=== PATIENT | female | born 1995 | race African-American/Black ===

== ENCOUNTER 2017-04-13 18:39 | Emergency (ER) | payer OTHER ==
[~2017-04-13] VITALS: Ht 149.9 cm; Wt 62.2 kg
[2017-04-13 18:40] VITALS: BP 116/75; PULSE 84; RESP 20; TEMP 98.5; O2SAT 100
[2017-04-13] MEDS ORDERED: DESO1TAB5 PO (19:15)
[2017-04-13] MEDS ORDERED: NAPROXEN 500 MG TAB PO ONE (19:30)
[2017-04-13] MEDS ORDERED: CYCLOBENZAPRINE HCL 10 MG TAB PO ONE (19:30)
[2017-04-13] MEDS ORDERED: CYCL1TAB29 PO (19:31)
[2017-04-13] MEDS ORDERED: DICL75TA PO (19:31)
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
== END 2017-04-13 19:53 | disposition home or self-care (01) ==
LOC: NEPD 18:39
DX: M54.2 Cervicalgia (principal); R51 Headache; V49.50XA Passenger injured in collision with unspecified motor vehicles in traffic accident, initial encounter
CPT/HCPCS: 99284

== ENCOUNTER 2017-11-18 01:53 | Emergency (ER) | payer OTHER ==
[~2017-11-18] VITALS: Ht 149.9 cm; Wt 60.0 kg
[~2017-11-18 01:53] MED LIST: CYCL10TA PO; DESO1TAB5 PO; DICL75TA PO
[2017-11-18 02:19] VITALS: BP 144/60; PULSE 92; RESP 16; TEMP 98.3; O2SAT 100
[2017-11-18] MEDS ORDERED: IBUP1TAB7 PO (03:57)
[2017-11-18] MEDS ORDERED: AMOX875T PO (03:57)
[2017-11-18] MEDS ORDERED: MAGICADU2 SWISH-SPIT (03:57)
--- NOTE | 2017-11-18 04:00 | PD ---
HPI Chief Complaint: Oral / Dental Pain or Problem Time Seen by Provider: 03:51 Travel History International Travel<30 days: No Contact w/Intl Traveler<30days: No Traveled to known affect area: No History of Present Illness HPI 22-year-old female presents for evaluation of dental pain. Symptoms started 2 weeks ago. The pain is an aching pain in the left mandibular first molar which is worse when chewing. She has been using [id number] Tylenol for pain persists which prompted evaluation. Denies any dental trauma, fevers or chills , cough or congestion, sore throat, ear pain. She has no other complaints at this time. PFSH Past Medical History Medical History: Denies Significant Hx Diminished Hearing: No Tetanus Vaccination: < 5 Years Influenza Vaccination: Yes ?: Not LMP: 10/30/2017 : 0 Para: 0 Past Surgical History Other Surgery: Yes (Right leg 2009 MRSA) Social History Alcohol Use: No Tobacco Use: No Substance Use: No Allergies-Medications (Allergen,Severity, Reaction): Coded Allergies: papaya (Unverified Allergy, Unknown, 04/15/17) Uncoded Allergies: guava (Allergy, Unknown, 05/02/16) PASSION FRUIT (Adverse Reaction, Unknown, SWELLING, 09/12/14) Reported Meds & Prescriptions Reported Meds & Active Scripts Active Magic Mouthwash Adult Liq (Multi-Ingredient Mouthwash/Gargle) 120 Ml Susp 10 Ml SWISH-SPIT ACHS Each 5mL contains: Nystatin 200,000units, Diphenhydramine 4.25mg, Viscous Lidocaine 10mg, Guerra syrup 0.8 mL Amoxicillin 875 Mg Tab 875 Mg PO BID 7 Days Ibuprofen 800 Mg Tab 800 Mg PO Q6HR PRN Flexeril (Cyclobenzaprine HCl) 10 Mg Tab 10 Mg PO TID Diclofenac Sodium DR (Diclofenac Sodium) 75 Mg Tabdr 75 Mg PO BID Reported Viorele (Desogestrel-Ethinyl Estradiol) 0.15-0.02/0.01 Mg (19/01) Tab 1 Tab PO DAILY Review of Systems General / Constitutional: No: Fever, Chills HENT: Positive: Dental Difficulties, No: Ear Discharge, Earache Cardiovascular: No: Chest Pain or Discomfort Respiratory: No: Cough Physical Exam Narrative GENERAL: Well-nourished female no acute distress SKIN: Warm and dry. HEAD: Atraumatic. Normocephalic. EYES: Pupils equal and round. No scleral icterus. No injection or drainage. ENT: No nasal bleeding or discharge. Mucous membranes pink and moist. The left mandibular first molar is mildly decayed and tender to percussion. There is no gingival edema, no facial edema, no sublingual edema, no trismus. NECK: Trachea midline. No JVD. No lymphadenopathy. CARDIOVASCULAR: Regular rate and rhythm. No murmur appreciated. RESPIRATORY: No accessory muscle use. Clear to auscultation. Breath sounds equal bilaterally. Data Data Last Documented VS Vital Signs Date Time Temp Pulse Resp B/P (MAP) Pulse Ox O2 Delivery O2 Flow Rate FiO2 11/18/17 02:19 98.3 92 16 144/60 (88) 100 MDM Medical Decision Making Medical Screen Exam Complete: Yes Emergency Medical Condition: Yes Medical Record Reviewed: Yes Differential Diagnosis Dental caries, pulpitis, pericoronitis, periodontal abscess Narrative Course The patient has mild dental caries localized to the left mandibular first molar. She is stable for discharge and outpatient follow-up. Diagnosis Primary Impression: Dental caries Additional Instructions: Medication as prescribed. Use additional forms of contraception while on these medications. Follow-up with a dentist for definitive treatment. Return for any emergent medical conditions. Med/Other Pt SpecificInfo: Prescription(s) given Scripts Erytmyli-Hmwuccjglgjnoag-Opnxcvlpc Liq (Magic Mouthwash Adult Liq) 120 Ml Susp 10 ML SWISH-SPIT ACHS for Mouth sores, #120 ML 0 Refills Each 5mL contains: Nystatin 200,000units, Diphenhydramine 4.25mg, Viscous Lidocaine 10mg, Guerra syrup 0.8 mL Prov: China Whitmore MD 11/18/17 Amoxicillin (Amoxicillin) 875 Mg Tab 875 MG PO BID for Infection for 7 Days, #14 TAB 0 Refills Prov: China Whitmore MD 11/18/17 Ibuprofen (Ibuprofen) 800 Mg Tab 800 MG PO Q6HR Y for PAIN, #40 TAB 0 Refills Prov: China Whitmore MD 11/18/17 Disposition: 01 DISCHARGE HOME Condition: Stable Kurt Hogan Nov 18, 2017 04:00
[2017-11-18] MEDS ORDERED: ACETAMINOPHEN 325 MG TAB PO ONE (05:00)
== END 2017-11-18 05:00 | disposition home or self-care (01) ==
LOC: NEPD 01:53
DX: K02.9 Dental caries, unspecified (principal)
CPT/HCPCS: 99283